=== PATIENT | male | born 1965 | race Caucasian/White ===

== ENCOUNTER → 2016-03-10 | Day surgery (SDC) | payer BC, OTHER ==
[2016-02-25 08:15] VITALS: BMI 29.0
--- NOTE | 2016-02-25 09:16 | DIAGNOSTIC IMAGING REPORT ---
CHEST PREADMISSION(PA/LAT) CLINICAL HISTORY: Preoperative evaluation COMPARISON STUDY: No previous studies for comparison. FINDINGS: Lung volumes are normal. There is no pneumothorax or pleural effusion. Cardiac size is normal. Mediastinal contours are normal. There is no evidence of pulmonary edema. IMPRESSION: No acute cardiopulmonary findings. Electronically signed by: Mike Cisneros M.D. 02/25/2016 9:15 AM
[2016-02-25 10:00] LABS: BASO ABS # 0.06 K/uL (0-0.2); COMPLETE YES; HEMATOCRIT 44.9 % (42-52); IG% 0.7 %; LYMPH % 26.4 %; LYMPH ABS # 1.61 K/uL (1.2-3.4); MEAN CELL VOLUME 88.6 fL (80-100); MEAN CORPUSCULAR HEMOGLOBIN 30.8 pg (25-34); MEAN CORPUSCULAR HGB CONC 34.7 g/dl (32-36); MEAN PLATELET VOLUME 12.7 fL (7.4-10.4); NEUT % 59.9 %; PLATELET COUNT 148 K/uL (130-400); RED BLOOD COUNT 5.07 M/uL (4.7-6.1); WHITE BLOOD COUNT 6.11 K/uL (4.8-10.8)
[2016-02-25 10:09] LABS: URINE APPEARANCE CLEAR (CLEAR); URINE BILIRUBIN NEG (NEG); URINE COLOR YELLOW; URINE NITRITE NEG (NEG); URINE SPECIFIC GRAVITY 1.018 (1.000-1.030); UROBILINOGEN NEG (NEG)
[2016-02-25 10:18] LABS: MANUAL MICROSCOPIC REQUIRED? NO; REVIEW REQ? NO
[2016-02-25 10:32] LABS: BUN/CREATININE RATIO 14.5 (10-20); CREATININE 1.1 mg/dl (0.60-1.40); POTASSIUM 3.6 mmol/L (3.5-5.1)
[2016-02-25 10:47] LABS: CALCIUM 9.3 mg/dl (8.5-10.1)
[~2016-03-10] VITALS: Ht 180.3 cm; Wt 94.5 kg
[~2016-03-10] MED LIST: ATROPINE SULFATE 0.1 MG/ML 5ML SYR IV PRN; BACITRACIN OINT 15 GM TUBE TOP ONE; BUPIVACAINE 0.5 % 5 MG/1 ML MPF 30ML VIAL INJ ONE; CEFAZOLIN 2000 MG/60 ML D5W IV SCH; CEPH500C2 PO; DEXAMETHASONE SOD INJ 4 MG/ML VIAL ONE; EpHEDrine SULFATE INJ 50 MG/ML AMP IV PRN; FENTANYL CITRATE INJ 50 MCG/1 ML 2 ML VIAL IV PRN; FENTANYL CITRATE INJ 50 MCG/1 ML 2 ML VIAL ONE; LACTATED RINGER'S 1000ML 1,000 ML IV SCH; LIDOCAINE HCL 2% 2 ML VIAL (20MG/ML) ONE; MIDAZOLAM HCL 1 MG/ML 2ML VIAL ONE; ONDANSETRON INJ 2 MG/ML 2 ML VIAL IV PRN; ONDANSETRON INJ 2 MG/ML 2 ML VIAL ONE; OXYC7.5T65 PO; OXYCODONE/ACETAMINOPHEN 5-325 TAB PO PRN; PROPOFOL IV EMULSION 10 MG/ML 20 ML VIAL IV ONE
--- NOTE | 2016-03-10 07:13 | History & Physical Bridge Note ---
H&P Re-Evaluation Bridge Note: I have examined the patient, reviewed the History & Physical and in the interval since the performance of the History & Physical I have noted the following changes of clinical significance: No changes noted
[2016-03-10 07:18] VITALS: BP 171/100; PULSE 101; TEMP 37; O2SAT 98; Ht 180.3 cm; Wt 94.5 kg
--- NOTE | 2016-03-10 10:48 | Discharge Instructions ---
Discharge Instructions Admission Reason for Admission: Spermatocele Discharge Discharge Diagnosis / Problem: R epididymal lesion s/p excision Discharge Goals Goal(s): Diagnostic testing, Therapeutic intervention Activity Recommendations Activity Limitations: per Instructions/Follow-up section Lifting Limitations: no more than 25 pounds Exercise/Sports Limitations: gradually increase as tolerated May Resume Sexual Activity: after one week Shower/Bathe: may shower/bathe in 3 days (no tub bath) . Instructions / Follow-Up Instructions / Follow-Up Drain removal Mar 12 at 10 AM. Postop visit as planned Discharge Diet Recommended Diet: Regular Diet Procedures Procedures Performed: Right Spermatocelectomy Pending Studies Studies pending at discharge: yes List of pending studies: Pathology report Medical Emergencies . Who to Call and When: Medical Emergencies: If at any time you feel your situation is an emergency, please call 911 immediately. . Non-Emergent Contact Non-Emergency issues call your: Urologist Call Non-Emergent contact if: you have a fever, temperature is above 101, your pain is not controlled, your pain is worsening, your pain is concerning you, wound has increased drainage, wound has increased redness, wound has increased pain . . "Provider Documentation" section prepared by Jason Chacon. VTE Core Measure Inpt VTE Proph given/why not?: SCD's [place] Drug Monitoring Program Search Results: patient reviewed within database, no issues identified
--- NOTE | 2016-03-10 10:59 | Anesthesiology Progress Note ---
Anesthesia Post Op Note Date & Time Mar 10, 2016 at 10:59 Vital Signs Pain Intensity: 0 Vital Signs Past 12 Hours Date Time Temp Pulse Resp B/P Pulse Ox O2 Delivery O2 Flow Rate FiO2 03/10/16 10:50 103 21 143/97 95 Room Air 03/10/16 10:40 89 12 148/84 99 Mask 10 03/10/16 10:30 91 15 137/87 99 Mask 10 03/10/16 10:23 36.4 90 15 125/91 98 Mask 10 03/10/16 07:18 37.0 101 18 171/100 98 Room Air Notes Mental Status: alert / awake / arousable, participated in evaluation Pt Amnestic to Procedure: Yes Nausea / Vomiting: adequately controlled Pain: adequately controlled Airway Patency, RR, SpO2: stable & adequate BP & HR: stable & adequate Hydration State: stable & adequate Anesthetic Complications: no major complications apparent
[2016-03-10 11:05] VITALS: BP 151/89; PULSE 99; TEMP 37; O2SAT 94
[2016-03-10 11:35] VITALS: BP 153/88; PULSE 98; O2SAT 95
[2016-03-10 12:05] VITALS: BP 155/94; PULSE 95; TEMP 36.7; O2SAT 96
--- NOTE | 2016-03-10 14:16 | OPERATIVE REPORT ---
DATE OF OPERATION: 03/10/2016 PREOPERATIVE DIAGNOSIS: Right complex epididymal lesion. POSTOPERATIVE DIAGNOSIS: Same. PROCEDURE: Excision of right complex epididymal lesion. SURGEON: Dr. Jason Chacon. APPLICATION ARCHITECT MANAGER: None. ANESTHESIA: General anesthesia with laryngeal mask plus local and cord block. COMPLICATIONS: Small cord hematoma evacuated prior to completion of closure. FINDINGS: Viable testis with an intact arterial supply on intraoperative Doppler, viable on gross inspection. Mixed cystic complex lesion of the epididymis sent intact for pathologic evaluation. SPECIMENS SENT TO PATHOLOGY: Right epididymal lesion. DRAINS LEFT IN PLACE: Include a quarter inch [place] drain to the dependent lateral aspect of the scrotum. ESTIMATED BLOOD LOSS: 20 mL. BRIEF HISTORY OF PRESENT ILLNESS: Mr. Montero a pleasant 50-year-old male who I have seen as an outpatient for history of persistent right supratesticular swelling. Previous testicular ultrasound demonstrated a complex lesion of the epididymis which was felt not to be clearly cystic in nature. However, seeing the long history of this lesion with the lack of change and a relative lack of vascularity, malignancy was not suspected. However, the lesion will be excised due to mass effect and to confirm the lack of significant pathology. Please see H\T\P for further details. Intravenous Ancef is provided for antibiotic coverage and SCDs used for DVT prophylaxis. DESCRIPTION OF PROCEDURE: The patient was properly identified and brought into the operative suite. After identification of appropriate consent on the chart, general anesthesia with laryngeal mask was initiated and the patient was prepped and draped in standard fashion for this procedure. full time-out procedure was followed. Skin was anesthetized with plain local prior to incision and a midline scrotal incision along the scrotal raphae was made and brought down to the subcutaneous tissues until the tunica vaginalis on the right hand side was entered sharply using Metzenbaum scissors. The tunica vaginalis was noted to be relatively adherent to the testis, which was able to be delivered from the scrotum. The tunica vaginalis was spatulated until the testis and contents could be delivered free from the scrotal cavity. Plain lidocaine was used for cord block for additional postoperative analgesia. Dissection was started around the level of the cystic and bilobed epididymal lesion. Previous dilation of the rete testes was also appreciated, but the testis was per plan to be left intact and in situ. Small vessels were ligated as necessary using a 2-0 Vicryl loop. Over the course of dissection, some swelling of the cord which was previously not appreciated was noted. At first, there was a question as to whether or not this was part of the epididymal lesion but then it was noted to be hemorrhagic in appearance. It was felt that likely a small vessel had been lacerated at the time of cord block injection. The small hematoma was spatulated and some bleeding muscle fibers at the level of the cremaster fibers was appreciated and cauterized. Cord was somewhat skeletonized at this area with no other further evidence of bleeding or swelling being noted. After completion of this and throughout the rest of the case, no further propagation of the hematoma or bleeding from the superior cord was appreciated. Dissection was continued posteriorly at the head of the epididymis and around the cystic lesion that was present. The top one-third to one-half of the epididymis was involved dissected free and clamped. The testis was noted to remain viable after the completion of the dissection, but to be certain intraoperative Doppler was used to identify and locate the testicular artery running into the testis itself. A large clamp was placed between the head of the epididymis and the testis and the lesion was removed intact and without perforation. This was handed off for pathologic analysis. The heavy clamp was undersewn using a 2-0 Vicryl suture and then oversewn using a Lembert style closure with another 2-0 Vicryl suture. After completion, the testis was noted to be viable with no other evidence of active bleeding. Meticulous hemostasis was obtained as necessary. Wound and testes were generously irrigated and the testis was returned to the scrotum with no twists or turns in the cord. An inferolateral incision was made to allow for the passage of a quarter inch [place] drain which was placed behind the testis within the cavity of the scrotum. A 2-0 silk was used to secure this in place. Incision was closed in 2 layers using 3-0 Vicryl suture running for the dartos fascia and a 3-0 chromic suture at the level of the skin. Bacitracin ointment was placed over the incision and a scrotal support fluffs were placed. Anesthesia was reversed. The patient was transferred to recovery room in stable condition. FOLLOWUP CARE: The patient will be discharged home with a prescription for Percocet and Keflex. Outpatient appointment for a postoperative check is confirmed. The patient is instructed to contact our service should he note any fevers, chills, nausea, vomiting or other significant difficulties in the postoperative period. I attest to the content of the Intraoperative Record and any orders documented therein. Any exceptio ns are noted below.
== END | disposition home or self-care (01) ==
LOC: C.ACU 06:53
PROVIDERS: ATTEND Urology
DX: N43.40 Spermatocele of epididymis, unspecified (principal); N50.3 Cyst of epididymis; Z68.29 Body mass index [BMI] 29.0-29.9, adult